=== PATIENT | female | born 1990 | race Caucasian/White ===

== ENCOUNTER 2019-12-18 09:47 | Inpatient (IN) | payer MEDICAID ==
[~2019-12-18] VITALS: Ht 154.9 cm; Wt 58.1 kg
--- NOTE | 2019-12-18 09:50 | NUR ---
PT BIBRA C/O NAUSEA VOMITING. PT IS APANISH SPEAKING ONLY. STATES THAT SHE TOOK 2 ASPIRIN AT 5AM THEN 2 MORE ASPIRINS AT 8AM, WENT TO WORK THEN STARTED TO FEEL SICK. PT DENIES SI OR HI . VS CHECKED. AWAITING MD IZAGUIRRE.
[2019-12-18] MEDS ORDERED: IV NS 0.9% 500 ML BAG IV ONE (10:00)
[2019-12-18 10:24] LABS: BASOPHILS % (AUTO) 0.7 % (0.0-2.0); EOSINOPHILS % (AUTO) 0.6 % (0.0-6.0); HEMATOCRIT 43 % (33-45); HEMOGLOBIN 13.9 g/dL (11.5-14.8); LYMPHOCYTES # (AUTO) 1.4 /CMM (0.8-4.8); LYMPHOCYTES % (AUTO) 21.1 % (20.0-44.0); MEAN CORPUSCULAR HGB CONC 32 g/dl (31.0-36.0); MEAN CORPUSCULAR VOLUME 95 fL (82-100); MONOCYTES # (AUTO) 0.4 /CMM (0.1-1.30); MONOCYTES % (AUTO) 5.9 % (2.0-12.0); NEUTROPHILS # (AUTO) 4.8 /CMM (1.8-8.9); NEUTROPHILS % (AUTO) 71.7 % (43.0-81.0); PLATELET COUNT (AUTO) 183 /CMM (150-450); RED BLOOD CELL COUNT(AUTO) 4.52 MIL/uL (4.0-5.2); WHITE BLOOD COUNT (AUTO) 6.7 K/uL (4.3-11.0)
[2019-12-18 10:45] LABS: CALCIUM, SERUM 8.5 mg/dL (8.5-10.1); CARBON DIOXIDE 15 mmol/L (21-32); CHLORIDE 110 mmol/L (98-107); CREATININE 0.9 mg/dL (0.6-1.3); GLUCOSE 89 mg/dL (74-106); POTASSIUM 3.6 mmol/L (3.5-5.1); SODIUM SERUM 142 mmol/L (136-145); UREA NITROGEN, BLOOD 21 mg/dL (7-18)
[2019-12-18 10:50] LABS: ALANINE AMINOTRANSFERASE < 6 U/L (12-78); ALBUMIN 3.8 g/dL (3.4-5.0); ALCOHOL, BLOOD < 3 mg/dL (0-0); ALKALINE PHOSPHATASE 41 U/L (46-116); ASPARTATE AMINOTRANSFERASE 12 U/L (15-37); BILIRUBIN,DIRECT 0.1 mg/dL (0.0-0.2); BILIRUBIN,TOTAL 0.3 mg/dL (0.2-1.0); TOTAL PROTEIN, SERUM 8.1 g/dL (6.4-8.2)
[2019-12-18 10:51] LABS: ACETAMINOPHEN 0 ug/ml (10-30)
[2019-12-18] MEDS ORDERED: SODIUM BICARBONATE 5 MEQ/10 ML DISP.SYRIN IV ONE (11:00)
--- NOTE | 2019-12-18 11:10 | NUR ---
URINE COLLECTED SENT TO LAB
[2019-12-18 11:12] LABS: APPEARANCE,URINE SLIGHTLY HAZY (CLEAR); BILIRUBIN,URINE Negative (NEGATIVE); BLOOD, URINE Trace-lysed Ery/uL (NEGATIVE); COLOR,URINE Yellow (YELLOW); KETONES,URINE 40 (NEGATIVE); LEUKOCYTE ESTERASE ,URINE Negative (NEGATIVE); NITRITE, URINE Negative (NEGATIVE); PROTEIN,URINE 100 mg/dl (NEGATIVE); UGLUCOSE Negative (NEGATIVE); UROBILINOGEN,URINE 0.2 EU/dL (0.2)
[2019-12-18 11:15] LABS: BACTERIA,URINE Few /HPF (None Seen); SQUAMOUS EPITHELIAL CELL,UR Few /HPF (None Seen); URINE AMORPHOUS URATE Few /HPF (None Seen)
[2019-12-18 11:16] LABS: MUCUS,URINE Few /LPF (None Seen)
[2019-12-18] MEDS ORDERED: Sodium Bicarbonate 150 MEQ in IV D5W 1,000 ML IV ONE (11:30)
--- NOTE | 2019-12-18 11:35 | NUR ---
PT BACK FROM CT
--- NOTE | 2019-12-18 11:40 | NUR ---
SODIUM BICARB INFUSION STARTED AT 100ML/HR
--- NOTE | 2019-12-18 11:51 | NUR ---
CALLED POISON CONTROL [phone] DR[address] BLANC SPEAKING WITH PHARMACIST
[2019-12-18] MEDS: POTASSIUM CL. PREMIX PERIPHER. 50 ML IV SCH ×4 (12:45→23:43)
[2019-12-18] MEDS ORDERED: POTASSIUM CL. PREMIX PERIPHER. 100 ML ONE (12:46)
--- NOTE | 2019-12-18 13:02 | NUR ---
CALLED [facility] DENTAL SURGEON PAGED.
[2019-12-18] MEDS ORDERED: MAG HYDROX/AL HYDROX/SIMETH 30 ML UDC PO PRN (14:00)
[2019-12-18] MEDS ORDERED: HYDROCODONE/APAP 5/325MG TABLET PO PRN (14:00)
[2019-12-18] MEDS ORDERED: Sodium Bicarbonate 100 MEQ in IV NS 0.9% 1,000 ML IV PRN (14:00)
[2019-12-18] MEDS ORDERED: ACETAMINOPHEN 325 MG TABLET PO PRN (14:00)
[2019-12-18] MEDS ORDERED: MAGNESIUM HYDROXIDE 30 ML UDC PO PRN (14:00)
[2019-12-18] MEDS ORDERED: Z GUARD REMEDY 2 OZ OINT TP PRN (14:00)
[2019-12-18] MEDS ORDERED: TEMAZEPAM 15 MG CAPSULE PO PRN (14:00)
[2019-12-18] MEDS ORDERED: ONDANSETRON HCL/PF 4 MG/2 ML VIAL IVP PRN (14:00)
[2019-12-18] MEDS ORDERED: MORPHINE SULFATE INJ 2 MG/ML DISP.SYRIN IV PRN (14:00)
--- NOTE | 2019-12-18 14:17 | NUR ---
COVID SWAB DONE SENT TO LAB
--- NOTE | 2019-12-18 14:24 | NUR ---
REPORT GIVEN TO ADY AT [facility] FOR RM 323-2 FOR STANLEY
--- NOTE | 2019-12-18 15:36 | NUR ---
COVID TEST: NEGATIVE
[2019-12-18 16:00] VITALS: BP 97/62
--- NOTE | 2019-12-18 16:50 | NUR ---
RN ADMITTING NOTES RECEIVED REPORT FROM MATTY BLACKWELL ER NURSE. BEDSIDE ENDORSEMENT DONE. PATIENT ARRIVED AT UNIT ACCOMPANIED BY 3 ER STAFF VIA GURNEY, TRANSFERRED TO ROOM 323-1. PATIENT IS RESTING, AWAKE AND VERBALLY RESPONSIVE. A/O X4, RUSSIAN-SPEAKING, BUT ABLE TO UNDERSTAND SOME CZECH, ABLE TO MAKE NEEDS KNOWN TO STAFF. BREATHING EVEN AND UNLABORED, TOLERATING ROOM AIR. IV LINE ON RIGHT HAND #20 AND LEFT HAND #20, INTACT AND PATENT, IVF OF SODIUM BICARBONATE IN D5W, RUNNING AT 100ML/HR, INFUSING WELL. KCL FINISHED INFUSING. SAFETY PRECAUTIONS IN PLACE: BED LOCKED AND ON LOWEST POSITION, SR UP X2, CALL LIGHT W/IN REACH. WILL CONTINUE TO MONITOR.
--- NOTE | 2019-12-18 16:57 | NUR ---
RN NOTES VS TAKEN: BP-97/62, HR-90, R-19, T-98.8, SPO2-100% IN ROOM AIR.
[2019-12-18 18:23] LABS: CALCIUM, SERUM 7.8 mg/dL (8.5-10.1); CREATININE 0.9 mg/dL (0.6-1.3); POTASSIUM 3.4 mmol/L (3.5-5.1)
--- NOTE | 2019-12-18 18:55 | NUR ---
FEATHER SHAPER CLOSING NOTES PATIENT IS IN BED SLEEPING, AROUSABLE VIA VERBAL AND TACTILE SENSATIONS. A/O X4, ABLE TO MAKE NEEDS KNOWN, ARMENIAN-SPEAKING, UNDERSTANDS SOME [place]. BREATHING EVEN AND UNLABORED ON ROOM AIR, NO ACUTE DISTRESS. TELE MONITORING, READING OF SR, HR AT 90S, NO CARDIAC DISTRESS NOTED. IV LINE ON R HAND #20 AND L HAND #20, INTACT AND PATENT, IVF OF BICARBONATE INFUSING WELL INDICATED. SAFETY PRECAUTIONS MAINTAINED. WILL ENDORSE TO EMERGENCY PREPAREDNESS COORDINATOR RN FOR STANLEY.
--- NOTE | 2019-12-18 19:39 | NUR ---
SERVICE ESTABLISHMENT ATTENDANT OPENING NOTES PATIENT SLEEPING, AWAKENS TO TOUCH AND NAME. A/OX4. PRIMARY LANGUAGE SLOVENIAN. ON RA; NO S/S OF ACUTE RESPIRATORY DISTRESS; BREATHING IS EVEN AND UNLABORED. NO C/O PAIN. TELE MONITOR READING NSR, HEART RATE 85. IV PRESENT ON LEFT HAND, SIZE 20, INTACT & PATENT, HEP LOCKED. IV PRESENT ON RIGHT HAND, SIZE 20, INTACT & PATENT WITH SODIUM BICARBONATE RUNNING AT 100 ML/HR. SAFETY MEASURES IN PLACE AND PATIENT'S NEEDS MET. BED LOCKED, HOB ELEVATED, SIDE RAILS X2, CALL LIGHT WITHIN REACH. WILL CONTINUE TO MONITOR.
[2019-12-18 20:03] VITALS: BP 92/59
[2019-12-18 21:41] VITALS: BP 96/56
--- NOTE | 2019-12-18 22:26 | NUR ---
COMPRESS TRUCKER NOTES RECEIVED PHONE CALL FROM POISON CONTROL. PER KENDRA, PATIENT NEEDS STAT LAB DRAW FOR SALICYLATE AND CMP. TRANSPORT OPERATIONS INSPECTOR DNP, SHIRA MONDRAGON, MADE AWARE. RECEIVED ORDERS FOR STAT LABS. POISON CONTROL (KENDRA): [phone]
[2019-12-18 23:07] LABS: BILIRUBIN,TOTAL 0.3 mg/dL (0.2-1.0); CALCIUM, SERUM 7.7 mg/dL (8.5-10.1); CREATININE 0.9 mg/dL (0.6-1.3); TOTAL PROTEIN, SERUM 6.1 g/dL (6.4-8.2)
[2019-12-18 23:08] LABS: POTASSIUM 2.8 mmol/L (3.5-5.1)
[2019-12-19] VITALS (7 sets, daily range): BP systolic 92–103; BP diastolic 50–64
[2019-12-19] MEDS ORDERED: POTASSIUM CHLORIDE 20 MEQ TAB.PRT.SR PO ONE (00:30)
[2019-12-19] MEDS: POTASSIUM CL. PREMIX PERIPHER. 50 ML IV SCH ×2 (00:51→01:45)
--- NOTE | 2019-12-19 01:05 | NUR ---
MAINTENANCE GROUNDMAN NOTES RECEIVED CRITICAL LAB VALUE; SALICYLATE 36.4. SPOKE TO STEVEN FROM POISON CONTROL; ADVISED TO KEEP PATIENT ON NAHCO3 FLUIDS UNTIL LEVEL REACHES <30 AND TO OBTAIN ABGS. RELAYED TO WEAVER NEEDLE LOOM DNP, SHIRA MONDRAGON; RECEIVED ORDERS FOR ABGS.
[2019-12-19 01:21] LABS: ABG BASE EXCESS -2.1 mmol/L; ABG OXYGEN SATURATION 97.9 % (92.0-98.5); ABG PCO2 29.8 mmHg (35.0-45.0); ABG PO2 105.7 mmHg (75.0-100.0); AaDO2 8.3 mmHg; COHb 0.2 % (0.5-1.5); MetHb 0.1 % (0.0-1.5); O2Hb 97.6 % (94.0-97.0); SITE, ABG Right Radial; VENT MODE, BG Room Aur
[2019-12-19] MEDS: POTASSIUM CHLORIDE 20 MEQ TAB.PRT.SR PO ONE ×2 (04:19→05:20)
[2019-12-19 06:37] LABS: BASOPHILS % (AUTO) 0.8 % (0.0-2.0); EOSINOPHILS % (AUTO) 0.9 % (0.0-6.0); HEMATOCRIT 36 % (33-45); LYMPHOCYTES # (AUTO) 1.1 /CMM (0.8-4.8); MEAN CORPUSCULAR HGB CONC 33 g/dl (31.0-36.0); MEAN CORPUSCULAR VOLUME 93 fL (82-100); MONOCYTES # (AUTO) 0.4 /CMM (0.1-1.30); NEUTROPHILS # (AUTO) 3.3 /CMM (1.8-8.9); NEUTROPHILS % (AUTO) 66.3 % (43.0-81.0); PLATELET COUNT (AUTO) 151 /CMM (150-450); RED BLOOD CELL COUNT(AUTO) 3.91 MIL/uL (4.0-5.2); WHITE BLOOD COUNT (AUTO) 4.9 K/uL (4.3-11.0)
[2019-12-19 06:54] LABS: CALCIUM, SERUM 7.5 mg/dL (8.5-10.1); CREATININE 0.8 mg/dL (0.6-1.3); PHOSPHORUS 2.7 mg/dL (2.5-4.9); POTASSIUM 4.5 mmol/L (3.5-5.1)
--- NOTE | 2019-12-19 07:31 | NUR ---
TRAFFIC CONTROL SUPERVISOR NOTES PATIENT'S SALICYLATE LEVEL 22. PER POISON CONTROL, PATIENT NO LONGER NEEDS NAHCO3 IVF AT 100 ML/HR. DAY SHIFT RN MADE AWARE.
--- NOTE | 2019-12-19 07:46 | NUR ---
MS RN OPENING NOTES RECEIVED PATIENT IN BED, AWAKE, A/OX4. PATIENT ON ROOM AIR; BREATHING IS EVEN AND UNLABORED; NO SOB NOTED AT THIS TIME. NO COMPLAINS OF PAIN OR ANY DISCOMFORT. L HAND AND R HAND IV ACCESS G#20 PRESENT AND INTACT. SAFETY PRECAUTIONS IN PLACE; BED IN LOW POSITION AND LOCKED, RAILS UP X2, CALL LIGHT WITHIN REACH. WILL CONTINUE TO MONITOR PATIENT. Addendum: 12/19/19 at 0751 by NEGRITO BEYER RN THERAPEUTIC MENTOR OPENING NOTES RECEIVED PATIENT IN BED, AWAKE, A/OX4. PATIENT ON ROOM AIR; BREATHING IS EVEN AND UNLABORED; NO SOB NOTED AT THIS TIME. NO COMPLAINS OF PAIN OR ANY DISCOMFORT. TELE MONITOR WITH A READING OF SINUS RHYTHM 99 BPM. L HAND AND R HAND IV ACCESS G#20 PRESENT AND INTACT. SAFETY PRECAUTIONS IN PLACE; BED IN LOW POSITION AND LOCKED, RAILS UP X2, CALL LIGHT WITHIN REACH. WILL CONTINUE TO MONITOR PATIENT.
--- NOTE | 2019-12-19 07:49 | NUR ---
MANAGER OF CORPORATE COMMUNICATIONS NOTES PATIENT AWAKE IN BED. A/OX4. ON RA; NO S/S OF ACUTE RESPIRATORY DISTRESS; BREATHING IS EVEN AND UNLABORED. NO C/O PAIN. TELE MONITOR READING NSR. IV PRESENT ON LEFT HAND, SIZE 20, INTACT & PATENT, HEP LOCKED. IV PRESENT ON RIGHT HAND, SIZE 20, INTACT & PATENT, HEP LOCKED. SAFETY MEASURES IN PLACE AND PATIENT'S NEEDS MET. BED LOCKED, HOB ELEVATED, SIDE RAILS X2, CALL LIGHT WITHIN REACH. ENDORSED TO DAY SHIFT RN PLAN OF CARE.
[2019-12-19] MEDS ORDERED: IV NS 0.9% 1,000 ML IV ONE (09:30)
[2019-12-19 11:00] LABS: BASOPHILS # (AUTO) 0.1 /CMM (0.0-0.2); HEMATOCRIT 38 % (33-45); HEMOGLOBIN 12.4 g/dL (11.5-14.8); LYMPHOCYTES # (AUTO) 1.4 /CMM (0.8-4.8); LYMPHOCYTES % (AUTO) 27.2 % (20.0-44.0); MEAN CORPUSCULAR HGB CONC 33 g/dl (31.0-36.0); MEAN CORPUSCULAR VOLUME 94 fL (82-100); MONOCYTES # (AUTO) 0.5 /CMM (0.1-1.30); MONOCYTES % (AUTO) 10.2 % (2.0-12.0); NEUTROPHILS # (AUTO) 3.2 /CMM (1.8-8.9); NEUTROPHILS % (AUTO) 60.6 % (43.0-81.0); PLATELET COUNT (AUTO) 165 /CMM (150-450); RED BLOOD CELL COUNT(AUTO) 4.04 MIL/uL (4.0-5.2); WHITE BLOOD COUNT (AUTO) 5.3 K/uL (4.3-11.0)
[2019-12-19 11:21] LABS: ALBUMIN 2.9 g/dL (3.4-5.0); BILIRUBIN,TOTAL 0.2 mg/dL (0.2-1.0); CALCIUM, SERUM 7.5 mg/dL (8.5-10.1); CREATININE 0.7 mg/dL (0.6-1.3); POTASSIUM 4.3 mmol/L (3.5-5.1); TOTAL PROTEIN, SERUM 6.1 g/dL (6.4-8.2)
--- NOTE | 2019-12-19 14:14 | NUR ---
ELECTROENCEPHALOGRAM TECHNOLOGIST NOTES PATIENT STATES SHE FEELS SOME RINGING IN BOTH EARS THAT COMES AND GOES. PATIENT STATES IT STARTED YESTERDAY AND CONTINUES TODAY. WHEN SHE GETS UP, SHE FEELS WEAK; ALSO WHEN SHE TRIES TO MOVE HER HANDS AND LEGS; SHE FEELS LIKE EVERYTHING ELSE IS MOVING. NO COMPLAINS OF SOB; BREATHING IS EVEN AND UNLABORED. HR NORMAL SINUS RHYTHM 87 BPM. WILL CONTINUE TO MONITOR. MD NOTIFIED; MD SAID HE WILL COME AND SEE HER.
[2019-12-19] MEDS ORDERED: CALCIUM CARBONATE 500 MG TAB.CHEW PO ONE (14:30)
[2019-12-19] MEDS ORDERED: NEUTRA PHOS 1 POWD.PACKET PO ONE ×2 (16:00→18:30)
--- NOTE | 2019-12-19 18:47 | NUR ---
SERGER CLOSING NOTES PATIENT REMAINS IN BED, IN AND OUT OF SLEEP, A/OX4. PATIENT ON ROOM AIR; BREATHING IS EVEN AND UNLABORED; NO SOB NOTED DURING THE DAY. HEADACHE TREATED WITH PRN TYLENOL 650 MG PER MD ORDER. TELE MONITOR WITH A READING OF SINUS RHYTHM 66 BPM. L HAND AND R HAND IV ACCESS G#20 PRESENT AND INTACT. CALLED POISON CONTROL WITH UPDATED SALICYLATES LEVEL OF 11.7; MD AWARE. ALL NEEDS ATTENDED TO THROUGHOUT THE DAY. SAFETY PRECAUTIONS IN PLACE; BED IN LOW POSITION AND LOCKED, RAILS UP X2, CALL LIGHT WITHIN REACH. WILL ENDORSE TO BANK TELLER MACHINE MECHANIC NURSE..
--- NOTE | 2019-12-19 19:18 | NUR ---
LOGISTICAL ENGINEER: RECEIVED PATIENT Patient in bed, sleeping, arouses easily. Tolerating room air. Sinus rhythm HR 68 in the Tele monitor. Fall precaution maintained.
[2019-12-20 00:21] VITALS: BP 103/57
[2019-12-20 00:44] VITALS: BP 103/57
[2019-12-20 04:00] VITALS: BP 106/78
--- NOTE | 2019-12-20 06:27 | NUR ---
NEWSPAPER PHOTO EDITOR: END OF SHIFT REPORT Patient is A/O x4. Tolerating room air. Sinus rhythm HR 80 in the Tele monitor. Patient slept through out the night, no acute events. Ambulated to the bathroom independently. Poison control cleared patient yesterday per report. Plan for Psych consult. Will endorse to oncoming RN.
[2019-12-20 07:32] LABS: BASOPHILS # (AUTO) 0.1 /CMM (0.0-0.2); BASOPHILS % (AUTO) 1.3 % (0.0-2.0); EOSINOPHILS % (AUTO) 1.6 % (0.0-6.0); HEMATOCRIT 38 % (33-45); HEMOGLOBIN 12.6 g/dL (11.5-14.8); LYMPHOCYTES # (AUTO) 1.6 /CMM (0.8-4.8); LYMPHOCYTES % (AUTO) 38.8 % (20.0-44.0); MEAN CORPUSCULAR HGB CONC 33 g/dl (31.0-36.0); MEAN CORPUSCULAR VOLUME 93 fL (82-100); MONOCYTES # (AUTO) 0.3 /CMM (0.1-1.30); NEUTROPHILS # (AUTO) 2.1 /CMM (1.8-8.9); NEUTROPHILS % (AUTO) 51.3 % (43.0-81.0); PLATELET COUNT (AUTO) 172 /CMM (150-450); WHITE BLOOD COUNT (AUTO) 4.1 K/uL (4.3-11.0)
--- NOTE | 2019-12-20 07:50 | NUR ---
RN OPENING NOTE Patient is resting in bed, A/O x4, showing no signs of acute distress or SOB, stable on RA. Patient denies pain, n/v/d, denies SI at this time. Patient is ambulatory and independent with care. Bed is in lowest position, side rails x3 in upright position, call light is within reach, fall safety and aspiration precautions enforced. Will continue with plan of care.
[2019-12-20 08:00] VITALS: BP 100/70
[2019-12-20 08:08] LABS: CALCIUM, SERUM 8.7 mg/dL (8.5-10.1); CREATININE 0.6 mg/dL (0.6-1.3); PHOSPHORUS 3.7 mg/dL (2.5-4.9); POTASSIUM 3.9 mmol/L (3.5-5.1)
[2019-12-20] MEDS ORDERED: INFLUENZA VACCINE 2020-21 0.5 ML DISP.SYRIN IM ONE (12:00)
[2019-12-20 13:00] VITALS: BP 100/64
--- NOTE | 2019-12-20 13:25 | NUR ---
OFFICE TECHNOLOGY INSTRUCTOR NOTE Patient is medically cleared for discharge from TUBER MACHINE OPERATOR, Psych, and crisis team. A/O x4, showing no signs of acute distress or SOB, stable on RA. DC information provided and patient verbalized understanding. All belongings are with the patient. Skin assessed and skin remains intact. All patient needs met, all due medications given, patient kept clean and dry. Patient picked up by friend en route to home.
== END 2019-12-20 13:15 | disposition home or self-care (01) | DRG 812 ==
LOC: ER 09:48 → TELE 15:54
PROVIDERS: ADMIT Nurse Practitioner Acute Care; ATTEND Nurse Practitioner Acute Care
DX: T39.011A Poisoning by aspirin, accidental (unintentional), initial encounter (principal); F15.10 Other stimulant abuse, uncomplicated; Y92.89 Other specified places as the place of occurrence of the external cause; E87.2 Acidosis; Z79.82 Long term (current) use of aspirin; F41.9 Anxiety disorder, unspecified; H93.19 Tinnitus, unspecified ear; R51.9 Headache, unspecified
CPT/HCPCS: 36415; 36600; 70450-TC; 71045-TC; 80048-TC; 80053-TC; 80061-TC; 80076-TC; 81000-TC; 82803-TC; 83605-TC; 83690-TC; 83735-TC; 84100-TC; 84703-TC; 85025-TC; 85610-TC; 85730-TC; 87081-TC; 87086-TC; C9803; G0378; G0480; J3480; J3490; J7030; J7040; J7070; Q2036